=== PATIENT | female | born 1985 | race Caucasian/White ===

== ENCOUNTER 2016-07-29 10:48 | Emergency (ER) | payer OTHER ==
[~2016-07-29] VITALS: Ht 170.2 cm; Wt 91.8 kg
[~2016-07-29 10:48] MED LIST: ALBUAER19 INH; ALBUAER2 INH; BUPR8SUB SL; PRENTAB26 PO; suboxone PO
[2016-07-29 10:52] VITALS: TEMP 37; Ht 170.2 cm; Wt 91.8 kg
[2016-07-29] MEDS ORDERED: SODIUM CHLORIDE 0.9% 1000ML 1,000 ML IV STA (11:06)
[2016-07-29] MEDS ORDERED: BENZONATATE 100MG CAP PO ONE (11:15)
[2016-07-29 11:29] LABS: BASO % 0.2 %; BASO ABS # 0.02 K/uL (0-0.2); COMPLETE YES; EOS % 1.8 %; HEMATOCRIT 39.9 % (37-47); IG% 0.2 %; LYMPH % 12.3 %; LYMPH ABS # 1.07 K/uL (1.2-3.4); MEAN CELL VOLUME 87.7 fL (80-100); MEAN CORPUSCULAR HEMOGLOBIN 31.4 pg (25-34); MEAN CORPUSCULAR HGB CONC 35.8 g/dl (32-36); MEAN PLATELET VOLUME 9.5 fL (7.4-10.4); NEUT % 79.5 %; PLATELET COUNT 239 K/uL (130-400); RED BLOOD COUNT 4.55 M/uL (4.2-5.4); WHITE BLOOD COUNT 8.67 K/uL (4.8-10.8)
[2016-07-29] MEDS ORDERED: EFF/375 PO (11:30)
[2016-07-29] MEDS ORDERED: VNTHFA/IN INH (11:30)
[2016-07-29] MEDS ORDERED: ESOM20CA PO (11:30)
[2016-07-29 11:45] LABS: BUN/CREATININE RATIO 13.2 (10-20); CALCIUM 8.7 mg/dl (8.5-10.1); CREATININE 0.75 mg/dl (0.60-1.20); POTASSIUM 3.5 mmol/L (3.5-5.1)
--- NOTE | 2016-07-29 11:51 | DIAGNOSTIC IMAGING REPORT ---
CHEST 2 VIEWS ROUTINE CLINICAL HISTORY: Fever and cough COMPARISON STUDY: No previous studies for comparison. FINDINGS: The heart is normal in size. There is no failure. There are left lower lobe airspace opacities consistent with a pneumonia. No pleural effusions are visualized.[ IMPRESSION: Left lower lobe airspace opacities consistent with pneumonia. Films subsequent to treatment are recommended in follow-up. Electronically signed by: Forest Morris M.D. 07/29/2016 11:49 AM Dictated Date/Time: 07/29/2016 11:48 AM
[2016-07-29] MEDS ORDERED: AZITHROMYCIN 250 MG TAB PO STA (11:59)
[2016-07-29] MEDS ORDERED: BENZ100C18 PO (12:38)
[2016-07-29] MEDS ORDERED: AZIT250T PO (12:38)
--- NOTE | 2016-07-29 12:39 | EMERGENCY ROOM VISIT NOTE ---
History First contact with patient: 10:58 Chief Complaint: COUGH Stated Complaint: COUGH, FEVER, BREATHING Nursing Triage Summary: cough, fever, chest pain when she coughs and nausea when she coughs hard. History of Present Illness The patient is a 30 year old female who presents to the Emergency Room with complaints of fever and cough which started on Thursday. The patient states every morning when she gets up her temperature has been 102. She states it comes down with ibuprofen. The patient states that she has a dry cough continuously. She denies any ear pain, postnasal drainage. The patient states that her throat is sore but she thinks it is from coughing but she is able to eat and drink without difficulty. She does admit to decreased appetite. She has not been eating or drinking that much. The patient also admits to diffuse body aches. The patient denies any nausea or vomiting. The patient is asthmatic. 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 The patient also admits to tobacco use. The patient states that her son had pneumonia recently and her had bronchitis. Review of Systems 10 system review was performed and was negative unless stated otherwise history of present illness. Past Medical/Surgical History Medical Problems: (1) ANXIETY STATE NOS (2) ASTHMA, UNSPECIFIED (3) OPIOID DEPENDENCE-REMISS (4) TOBACCO USE DISOR COMP PREG/CHILDBIRTH/PUERPERIUM, ANTEPART Social History Smoking Status: Never Smoker Alcohol Use: occasionally Drug Use: none Marital Status: Housing Status: lives with family Occupation Status: employed Current/Historical Medications Scheduled Albuterol Hfa (Ventolin Hfa), 2-4 PUFFS INH Q6H Esomeprazole Magnesium (Nexium), 20 MG PO DAILY Venlafaxine Hcl (Effexor), 37.5 MG PO DAILY Allergies Coded Allergies: Penicillins (Verified Allergy, Intermediate, n/v, 07/29/16) Physical Exam Vital Signs Date Time Temp Pulse Resp B/P Pulse Ox O2 Delivery O2 Flow Rate FiO2 07/29/16 10:52 37.0 109 18 149/90 96 Room Air Physical Exam PHYSICAL EXAM: Vital Signs were reviewed: Temperature 37.0, blood pressure 149/ 90, pulse 109, respiratory rate 18 Reviewed Nurse's notes and agree. Oxygen saturation is 96 % on room air which is normal . GENERAL: 30-year-old female appears in no acute distress. MENTAL STATUS: Alert, oriented, coherent. EARS: Canals clear. TMs good light reflex, no erythema or fluid level noted. NOSE: Nasal mucosa with moderate erythema engorgement. PHARYNX: No erythema, no edema noted. No exudate noted. Airway is adequate. NECK: Supple, non-tender. No lymphadenopathy noted. LUNGS: Clear to auscultation without wheezes rales or rhonchi. CARDIAC: Regular rate and rhythm without murmur. SKIN: No rashes noted. Medical Decision & Procedures ER Provider Diagnostic Interpretation: CHEST 2 VIEWS ROUTINE CLINICAL HISTORY: Fever and cough COMPARISON STUDY: No previous studies for comparison. FINDINGS: The heart is normal in size. There is no failure. There are left lower lobe airspace opacities consistent with a pneumonia. No pleural effusions are visualized.[ IMPRESSION: Left lower lobe airspace opacities consistent with pneumonia. Films subsequent to treatment are recommended in follow-up. Electronically signed by: Forest Morris M.D. 07/29/2016 11:49 AM Dictated Date/Time: 07/29/2016 11:48 AM Laboratory Results 07/29/16 11:13 Red Blood Count 4.55, Mean Corpuscular Volume 87.7, Mean Corpuscular Hemoglobin 31.4, Mean Corpuscular Hemoglobin Concent 35.8, Mean Platelet Volume 9.5, Neutrophils (%) (Auto) 79.5, Lymphocytes (%) (Auto) 12.3, Monocytes (%) (Auto) 6.0, Eosinophils (%) (Auto) 1.8, Basophils (%) (Auto) 0.2, Neutrophils # (Auto) 6.88, Lymphocytes # (Auto) 1.07, Monocytes # (Auto) 0.52, Eosinophils # (Auto) 0.16, Basophils # (Auto) 0.02 07/29/16 11:13 Test 07/29/16 11:06 07/29/16 11:13 Influenza Type A Antigen Neg for Influ A (NEG) Influenza Type B Antigen Neg for Influ B (NEG) White Blood Count 8.67 K/uL (4.8-10.8) Red Blood Count 4.55 M/uL (4.2-5.4) Hemoglobin 14.3 g/dL (12.0-16.0) Hematocrit 39.9 % (37-47) Mean Corpuscular Volume 87.7 fL (80-100) Mean Corpuscular Hemoglobin 31.4 pg (25-34) Mean Corpuscular Hemoglobin Concent 35.8 g/dl (32-36) Platelet Count 239 K/uL (130-400) Mean Platelet Volume 9.5 fL (7.4-10.4) Neutrophils (%) (Auto) 79.5 % Lymphocytes (%) (Auto) 12.3 % Monocytes (%) (Auto) 6.0 % Eosinophils (%) (Auto) 1.8 % Basophils (%) (Auto) 0.2 % Neutrophils # (Auto) 6.88 K/uL (1.4-6.5) Lymphocytes # (Auto) 1.07 K/uL (1.2-3.4) Monocytes # (Auto) 0.52 K/uL (0.11-0.59) Eosinophils # (Auto) 0.16 K/uL (0-0.5) Basophils # (Auto) 0.02 K/uL (0-0.2) RDW Standard Deviation 39.1 fL (36.4-46.3) RDW Coefficient of Variation 12.2 % (11.5-14.5) Immature Granulocyte % (Auto) 0.2 % Immature Granulocyte # (Auto) 0.02 K/uL (0.00-0.02) Anion Gap 11.0 mmol/L (3-11) Est Creatinine Clear Calc Drug Dose 126.4 ml/min Estimated GFR () 123.1 Estimated GFR (Non- 106.2 BUN/Creatinine Ratio 13.2 (10-20) Calcium Level 8.7 mg/dl (8.5-10.1) Medications Administered Medications (Trade) Dose Ordered Sig/[place] Route Start Time Stop Time Status Last Admin Dose Admin Sodium Chloride (Nss 1000ml) 1,000 ml @ 999 mls/hr Q1H1M STAT IV 07/29/16 11:06 07/29/16 12:06 DC 07/29/16 11:18 999 MLS/HR Benzonatate (Tessalon Perles Cap) 100 mg NOW ONCE PO 07/29/16 11:15 07/29/16 11:16 DC 07/29/16 11:16 100 MG ED Course The patient was evaluated. IV access was obtained. The patient was given 1 L normal saline wide-open. The patient was given Tessalon Perles 100 mg by mouth. CBC and differential and renal profile was ordered. Labs are reviewed and were unremarkable. White count was normal. Rapid influenza was negative for influenza A and influenza B.. Chest x-ray was ordered and interpreted by the radiologist and myself as above with left lower lobe pneumonia. The patient was informed of the findings. The patient was given Zithromax 500 mg by mouth while in the emergency room. The patient was discharged home in stable condition. Medical Decision Differential diagnosis include pneumonia, bronchitis, influenza, asthma exacerbation, viral URI Impression Primary Impression: Pneumonia Departure Information Dispostion Home / Self-Care Condition GOOD Prescriptions Benzonatate (TESSALON PERLES) 100 Mg Cap 100 MG PO Q6 for Cough, #20 CAP Prov: Evelyn Anand PA-C 07/29/16 Azithromycin (Zithromax) 250 Mg Tab 500 MG PO DAILY for 4 Days, #8 TAB Prov: Evelyn Annad PA-C 07/29/16 Referrals Apolinar Mukherjee M.D. (PCP) Forms HOME CARE DOCUMENTATION FORM, IMPORTANT VISIT INFORMATION Patient Instructions ED [facility], [facility] Additional Instructions Take Zithromax as prescribed. Push fluids, rest. Tylenol and/or ibuprofen as needed for fever. Tessalon Perles as needed for cough. Also recommend using your albuterol inhaler 2 puffs every 4 hours for 5 days then every 4 hours as needed. Follow-up with your family physician in 2 days for recheck. Problem Qualifiers Primary Impression: Pneumonia Pneumonia type: due to unspecified organism Laterality: left Lung location : lower lobe of lung Qualified Codes: J18.1 - Lobar pneumonia, unspecified organism
[2016-07-29 13:03] VITALS: BP 123/95; PULSE 93; O2SAT 98
== END 2016-07-29 13:03 | disposition home or self-care (01) ==
LOC: C.EDB 10:49 → C.EDC 13:03
DX: J18.9 Pneumonia, unspecified organism (principal); F41.9 Anxiety disorder, unspecified; J45.909 Unspecified asthma, uncomplicated; F11.21 Opioid dependence, in remission

== ENCOUNTER 2018-01-27 22:50 | Inpatient (IN) | payer OTHER ==
[~2018-01-27] VITALS: Ht 170.2 cm; Wt 96.3 kg
[~2018-01-27 22:50] MED LIST changes: -ALBUAER19 INH; -ALBUAER2 INH; -BUPR8SUB SL; +LEVO5TAB7 PO; +MTR600X PO; +RANI150T85 PO; +SERT25TA PO; +VNTHFA/IN INH; -suboxone PO
[2018-01-27] MEDS ORDERED: SODIUM CHLORIDE 0.9% 1000ML 1,000 ML IV STA (23:09)
[2018-01-27] MEDS ORDERED: MoRPHine SULFATE 10 MG/ML CARP/VIAL IV STA (23:09)
[2018-01-27] MEDS ORDERED: ONDANSETRON INJ 2 MG/ML 2 ML VIAL IV STA (23:09)
[2018-01-27] MEDS ORDERED: DEXAMETHASONE **PF** INJ 10 MG/ML VIAL IV STA (23:17)
[2018-01-27] MEDS ORDERED: MoRPHine SULFATE 4 MG/ML 1 ML CARP\\VIAL ONE (23:24)
[2018-01-27] MEDS ORDERED: OPTIRAY 320 IV PRN (23:30)
[2018-01-27 23:32] LABS: BASO % 0.3 %; BASO ABS # 0.03 K/uL (0-0.2); EOS % 1.3 %; EOS ABS # 0.13 K/uL (0-0.5); HEMATOCRIT 38.3 % (37-47); HEMOGLOBIN 13.1 g/dL (12.0-16.0); IG# 0.01 K/uL (0.00-0.02); LYMPH % 14.8 %; LYMPH ABS # 1.48 K/uL (1.2-3.4); MEAN CELL VOLUME 87.8 fL (80-100); MEAN CORPUSCULAR HGB CONC 34.2 g/dl (32-36); MONO % 6.6 %; MONO ABS # 0.66 K/uL (0.11-0.59); NEUT % 76.9 %; NEUT ABS # 7.72 K/uL (1.4-6.5); PLATELET COUNT 254 K/uL (130-400); RED CELL DISTRIBUTION WIDTH SD 41.8 fL (36.4-46.3); WHITE BLOOD COUNT 10.03 K/uL (4.8-10.8)
[2018-01-27 23:51] LABS: PTT PATIENT 29.3 SECONDS (21.0-31.0)
[2018-01-28 00:05] LABS: ALBUMIN 3.4 gm/dl (3.4-5.0); CALCIUM 8.2 mg/dl (8.5-10.1); CREATININE 0.9 mg/dl (0.60-1.20); POTASSIUM 3.4 mmol/L (3.5-5.1); TOTAL PROTEIN 6.8 gm/dl (6.4-8.2)
--- NOTE | 2018-01-28 00:16 | EMERGENCY ROOM VISIT NOTE ---
History First contact with patient: 22:57 Chief Complaint: DENTAL PAIN Stated Complaint: SWELLING JAW/TEETH Nursing Triage Summary: dental surgery to remove wisdom teeth on Thursday. pt with increased facial swelling and pain. feels like she has a large lump in her throat and cannot swallow. fever and chills. pt taking Vicoden (at 1730) and Ibuprofen 800mg ( at 1800) at home, not helping. pt with increased swelling in her face today. pt contacted her dentist and they cannot see her until Thursday. pt is 6weeks post and not . History of Present Illness The patient is a 32 year old female who presents to the Emergency Room with complaints of severe dental pain and facial swelling which began approximately 2 hours prior to arrival. On Thursday of this week, the patient had teeth pulled in [place]. She states she had an infection prior to the surgery but was not placed on any antibiotics. She states she had both wisdom teeth as well as one other tooth pulled on the left side and one wisdom tooth pulled on the right side. The patient states she has been experiencing some mild swelling and pain , but 2 hours ago, the symptoms significantly worsened. She rates her pain 10/ 10 and describes it as sharp in nature. She has been taking Vicodin and I ibuprofen with her last dose being at approximately 5:30 PM. Patient states she is having difficulty swallowing her saliva, but is able to. She states she has been spitting saliva out. The patient reports chills and shivering throughout the day, but denies any objective fever. She does report some mild drainage in her mouth and feels that there is a foul odor of infection coming from her mouth. The patient denies any chest pain, dyspnea, numbness or tingling, sore throat, nausea or vomiting, headache, dizziness, or other concerning symptoms. Review of Systems A complete 10 point review of systems was reviewed with the patient with pertinent positives and negatives as per history of present illness. All else were negative. Past Medical/Surgical History Medical Problems: (1) ANXIETY STATE NOS (2) ASTHMA, UNSPECIFIED (3) OPIOID DEPENDENCE-REMISS (4) (5) TOBACCO USE DISOR COMP PREG/CHILDBIRTH/PUERPERIUM, ANTEPART Family History Atrial fibrillation Social History Smoking Status: Current Every Day Smoker Smokeless Tobacco Use: No Alcohol Use: none Drug Use: none Marital Status: Housing Status: lives with family Occupation Status: employed Current/Historical Medications Scheduled Levocetirizine Dihydrochloride (Xyzal Allergy 24Hr), 5 MG PO QPM Ranitidine (Zantac), 1 TAB PO BID Sertraline (Zoloft), 1 TAB PO DAILY Scheduled PRN Albuterol Hfa (Ventolin Hfa), 2 PUFFS INH Q6H PRN for SOB/Wheezing Ibuprofen (Motrin), 600 MG PO Q4H PRN for Pain Physical Exam Vital Signs Date Time Temp Pulse Resp B/P (MAP) Pulse Ox O2 Delivery O2 Flow Rate FiO2 01/28/18 00:23 96 20 124/70 99 Room Air 01/27/18 22:52 37.3 133 20 134/91 100 Room Air Physical Exam VITALS: Vitals are noted on the nurse's note and reviewed by myself. Vital signs stable. GENERAL: This is a 32-year-old obese white female, in no acute distress, nondiaphoretic, well-developed well-nourished. SKIN: The skin was without rashes, erythema, edema, or bruising. There is no tenting of the skin. Capillary reflex less than 2 seconds. HEAD: Normocephalic atraumatic. EARS: External auditory canals clear, tympanic membranes pearly lewis without erythema or effusion bilaterally. EYES: Pupils equal round and reactive to light and accommodation. Conjunctivae without injection, sclerae without icterus. Extraocular movements intact. NOSE: Patent, turbinates without inflammation or discharge. No sinus tenderness. MOUTH: Mucous membranes moist. Tonsils are not visualized. Visualized portions of the pharynx without erythema or exudate. Uvula midline. Airway patent. Tongue does not deviate. Poor dentition with recently extracted teeth. There is no significant redness, however the mouth is overall swollen and edematous. There is swelling extending to the floor of the mouth. No obvious drainage from the mouth. There is saliva within the oral cavity which the patient is having difficulty swallowing. NECK: Significant swelling and edema of the left side of the neck. Supple without nuchal rigidity. No lymphadenopathy. No thyromegaly. Cervical spine is nontender. No JVD. Airway patent. HEART: Regular rate and rhythm without murmurs gallops or rubs. LUNGS: Clear to auscultation bilaterally without wheezes, rales or rhonchi. No dullness to percussion. No retractions or accessory muscle use. MUSCULOSKELETAL: No muscle atrophy, erythema, or edema noted. Full range of motion without joint tenderness in all extremities. No tenderness to palpation. Normal gait. Strength 5/5 throughout. NEURO: Patient was alert and oriented to person place and time. Normal sensation to light and sharp touch. No focal neurological deficits. Medical Decision & Procedures ER Provider Diagnostic Interpretation: CT OF THE NECK WITH CONTRAST CLINICAL HISTORY: Neck swelling and dyspnea. Recent dental procedure. COMPARISON STUDY: No previous studies for comparison. TECHNIQUE: Axial images of the neck were obtained following intravenous injection of 92 cc of Optiray 320 IV. FINDINGS: Visualized portions of the intracranial contents are unremarkable. Orbits are normal. Note is made of moderate mucosal thickening of the right maxillary sinus and mild mucosal thickening of the remainder of the sinuses. Small amount of bilateral mastoid fluid is noted. Lung apices are clear. There are findings consistent with recent extraction of the left third mandibular molar. There is moderate adjacent fluid and inflammation without rim-enhancing fluid collection. This inflammation extends into the manager [employer], submandibular and parapharyngeal spaces with secondary enlargement of the left submandibular gland as well as thickening/edema of the epiglottis and left aryepiglottic fold with resultant mild to moderate supraglottic airway narrowing with effacement. Infiltration extends into the floor of the mouth. There is no soft tissue gas. There is no prevertebral fluid. Note is made of age indeterminate extraction of bilateral maxillary molars. The left maxillary molar extraction site may communicate with the left maxillary sinus. Major vasculature of the neck is patent. No suspicious osseous lesion is present. IMPRESSION: 1. Findings consistent with recent extraction of the left third mandibular molar with moderate adjacent inflammation/fluid which extends into the left [employer], submandibular and parapharyngeal spaces and floor of the mouth consistent with cellulitis/phlegmon. No rim-enhancing fluid collection to suggest abscess. Associated edema of the left aryepiglottic fold and epiglottis with airway effacement and mild to moderate supraglottic airway narrowing. Close clinical monitoring is recommended. Discussed with Dr. Spears at time of dictation. 2. Age indeterminate extractions of bilateral maxillary molars, as described above. Electronically signed by: Vu Tony M.D. 01/28/2018 8:10 AM Dictated Date/Time: 01/28/2018 6:40 AM Laboratory Results Test 01/27/18 23:22 Prothrombin Time 10.3 SECONDS (9.0-12.0) Prothromb Time International Ratio 1.0 (0.9-1.1) Activated Partial Thromboplast Time 29.3 SECONDS (21.0-31.0) Partial Thromboplastin Ratio 1.1 Lactic Acid Level 0.9 mmol/L (0.4-2.0) Total Bilirubin 0.4 mg/dl (0.2-1) Aspartate Amino Transf (AST/SGOT) 18 U/L (15-37) Alanine Aminotransferase (ALT/SGPT) 31 U/L (12-78) Alkaline Phosphatase 54 U/L (45-117) Total Protein 6.8 gm/dl (6.4-8.2) Albumin 3.4 gm/dl (3.4-5.0) Globulin 3.4 gm/dl (2.5-4.0) Albumin/Globulin Ratio 1.0 (0.9-2) Human Chorionic Gonadotropin, Qual NEG (NEG) Medications Administered Medications (Trade) Dose Ordered Sig/[place] Route Start Time Stop Time Status Last Admin Dose Admin Ondansetron HCl (Zofran Inj) 4 mg NOW STAT IV 01/27/18 23:09 01/27/18 23:14 DC 01/27/18 23:29 4 MG Sodium Chloride 1,000 ml @ 999 mls/hr Q1H1M STAT IV 01/27/18 23:09 01/28/18 00:09 DC 01/27/18 23:33 999 MLS/HR Dexamethasone Sodium Phosphate (Dexamethasone Inj Pf) 10 mg NOW STAT IV 01/27/18 23:17 01/27/18 23:18 DC 01/27/18 23:29 10 MG Morphine Sulfate (MoRPHine SULFATE INJ) 8 mg STK-MED ONCE .ROUTE 01/27/18 23:24 01/27/18 23:25 DC 01/27/18 23:29 8 MG Ampicillin Sodium/ Sulbactam Sodium 3000 mg/Sodium Chloride 108 ml @ 200 mls/hr ONE STAT IV 01/28/18 01:03 01/28/18 01:35 DC 01/28/18 01:11 200 MLS/HR Morphine Sulfate (MoRPHine SULFATE INJ) 3 mg Q3HWA PRN IV 01/28/18 01:30 8 01:29 01/28/18 14:27 3 MG ED Course The patient was seen and evaluated as above. IV access obtained, labs drawn. The patient was given morphine, Zofran, Decadron, and normal saline solution. Labs reviewed by myself. Imaging performed and reviewed by myself and radiologist as above. I discussed the findings with the patient at bedside. I discussed the case with my attending. I consulted with Dr. Nolasco via phone regarding patient condition. We agreed that admission for airway monitoring and IV antibiotics was the most appropriate plan at this time. He agrees to consult tomorrow morning with a medicine admission. I discussed this recommendation with the patient at bedside. She was agreeable to admission. The patient was given 3g IV Unasyn. I discussed the case with Dr. Mi, [facility]. He agrees to accept the patient to his service. Please see his dictation regarding ongoing management and care. Medical Decision This is a 32-year-old female patient presents emergency department today complaining of significant relatively sudden onset of pain and facial swelling 3 days post dental extraction. There is concern for possible cellulitis, abscess, and airway compromise due to the patient's condition and symptoms. She has not been on antibiotics since the extraction. Laboratory workup here in the emergency department did not reveal any leukocytosis, anemia, thrombocytopenia. The patient's renal, hepatic function and electrolytes were without significant abnormalities. The patient's lactic acid was normal. Blood cultures are pending. CT scan of the neck shows evidence for significant inflammatory changes extending from the left mandibular body with edema into the manager company space, submandibular space, and floor of the mouth, consistent with cellulitis/phlegmon. There is no obvious abscess, however the cellulitis on the floor of the mouth was concerning for risk of developing airway compromise. Based on these findings and the patient's complaints of dyspnea and trismus, I do feel that admission for IV antibiotics and airway monitoring is the most appropriate management at this time. The patient was agreeable. She was started on IV antibiotics and given 10 mg Decadron here in the emergency department with mild improvement in her symptoms. Her pain was managed with morphine. The patient will be admitted for ongoing management and monitoring. Differential diagnosis includes Ezra's angina, cellulitis, airway obstruction , postoperative infection, odontalgia, periapical abscess, acute sinusitis, osteomyelitis, gingivitis, pulpitis, dental caries, periodontitis, malignancy, and others The chart was completed utilizing [employer] Speech voice recognition software. Grammatical errors, random word insertions, pronoun errors, and incomplete sentences are an occasional consequence of this system due to software limitations, ambient noise, and hardware issues. Any formal questions or concerns about the content, text, or information contained within the body of this dictation should be directly addressed to the provider for clarification. [place] Drug Monitoring Program Search Results: patient reviewed within database, no issues identified Medication Reconcilliation Current Medication List: was personally reviewed by me Blood Pressure Screening Patient's blood pressure: Normal blood pressure Impression Primary Impression: Cellulitis and abscess of mouth Departure Information Referrals Apolinar Mukherjee M.D. (PCP) Patient Instructions My [facility]
[2018-01-28] MEDS ORDERED: AMPICILLIN/SULBACTAM SOD INJ 3,000 MG in SODIUM CHLORIDE 0.9% 100ML 100 ML IV STA (01:03)
[2018-01-28] MEDS ORDERED: ONDANSETRON INJ 2 MG/ML 2 ML VIAL IV PRN (01:30)
[2018-01-28] MEDS ORDERED: ALUMINUM/MAGNESIUM/SIMETH (MAALOX MAX) 30 ML UDC PO PRN (01:30)
[2018-01-28] MEDS ORDERED: D5W AND NSS 1,000 ML IV SCH (01:30)
[2018-01-28] MEDS ORDERED: ALBUTEROL HFA 8 GM INHALER INH SCH (01:30)
[2018-01-28] MEDS ORDERED: IBUP600T44 PO (01:37)
[2018-01-28] MEDS ORDERED: VNTHFA/IN INH (01:40)
[2018-01-28] MEDS ORDERED: POTASSIUM CHLR IV SCH (01:45)
[2018-01-28] MEDS ORDERED: ALBUTEROL HFA 8 GM INHALER INH PRN (01:45)
[2018-01-28] MEDS ORDERED: WTR IV SCH (01:45)
[2018-01-28] MEDS ORDERED: D5W AND NSS IV SCH (01:45)
[2018-01-28 02:25] VITALS: BP 128/86; PULSE 92; TEMP 37.2; O2SAT 97; Ht 170.2 cm; Wt 96.3 kg
[2018-01-28] MEDS: D5NSS + 20MEQ KCL 1,000 ML IV SCH ×2 (03:32→15:04)
[2018-01-28] MEDS: MoRPHine SULFATE 4 MG/ML 1 ML CARP\\VIAL IV PRN ×5 (03:32→21:11)
[2018-01-28] MEDS: AMPICILLIN/SULBACTAM SOD INJ 3,000 MG in SODIUM CHLORIDE 0.9% 100ML 100 ML IV SCH ×3 (05:50→17:59)
[2018-01-28 06:17] LABS: BASO % 0.1 %; BASO ABS # 0.01 K/uL (0-0.2); EOS % 0.1 %; EOS ABS # 0.01 K/uL (0-0.5); HEMATOCRIT 37.4 % (37-47); HEMOGLOBIN 12.8 g/dL (12.0-16.0); IG# 0.02 K/uL (0.00-0.02); LYMPH % 5.1 %; LYMPH ABS # 0.58 K/uL (1.2-3.4); MEAN CELL VOLUME 88.4 fL (80-100); MEAN CORPUSCULAR HEMOGLOBIN 30.3 pg (25-34); MEAN CORPUSCULAR HGB CONC 34.2 g/dl (32-36); MEAN PLATELET VOLUME 8.9 fL (7.4-10.4); MONO % 1.1 %; MONO ABS # 0.13 K/uL (0.11-0.59); NEUT % 93.4 %; NEUT ABS # 10.64 K/uL (1.4-6.5); PLATELET COUNT 244 K/uL (130-400); RED CELL DISTRIBUTION WIDTH CV 12.9 % (11.5-14.5); RED CELL DISTRIBUTION WIDTH SD 41.6 fL (36.4-46.3); WHITE BLOOD COUNT 11.39 K/uL (4.8-10.8)
[2018-01-28 06:56] LABS: CALCIUM 7.9 mg/dl (8.5-10.1); CREATININE 0.73 mg/dl (0.60-1.20)
--- NOTE | 2018-01-28 07:02 | HISTORY & PHYSICAL EXAMINATION ---
DATE OF ADMISSION: 01/27/2018 CHIEF COMPLAINT: Tooth and facial pain. HISTORY OF PRESENT ILLNESS: This is a 32-year-old female with past medical history significant for asthma mild persistent, who recently on last Thursday had tooth extraction, comes with severe facial pain and pain in the neck. The patient says her 3 of the wisdom tooth were extracted and one of the tooth in her left lower side was extracted because of some possible infection and that she was not given antibiotics. Since the extraction, she was having pain and she was not able to eat much, but today the pain got worse and she was having difficulty swallowing, so she came to the ER. In the ER, her vitals were okay. Her white count was okay, but the CAT scan of the soft tissue was done, which showed possible cellulitis and the ER physician spoke with the oromaxillary surgery and was recommended to start on IV antibiotics and observe in the hospital. Currently, patient complaints of pain in her jaws and the throat, has some difficulty swallowing. She is trying to drink liquids, but not able to eat solids much. Denies any fever or chills. No shortness of breath, no cough, no headaches, no blurred vision, no earache, no runny nose, no chest pain, no nausea, no vomiting, no abdominal pain. Did not move bowels since last Thursday as she is not eating much. Normal bladder movements. No swelling in the legs. ALLERGIES: No known drug allergies. PAST MEDICAL HISTORY: As mentioned above. PAST SURGICAL HISTORY: Colonoscopy. MEDICATIONS: The patient is on Ventolin 2 puffs every 4 hours p.r.n., Zoloft 25 mg p.o. daily, levocetirizine 5 mg p.o. in the evening, Zantac 150 mg p.o. daily. FAMILY HISTORY: Significant for mother had asthma and hypertension. Brother had cancer. Grandmother has diabetes. SOCIAL HISTORY: , smokes half-pack a day for last 12 years. No alcohol use. No drug use. REVIEW OF SYMPTOMS: As per HPI. Rest of review of systems negative. PHYSICAL EXAMINATION: GENERAL: The patient is of moderate build, not in distress. VITAL SIGNS: Temperature 37.3, pulse 96, respiratory rate 20, blood pressure 124/70, oxygen 99% on room air. HEENT: No pallor, no icterus. Pupils equal, round, reactive to light. The patient is not able to open mouth fully, but seems to have some swelling in the left molar region. NECK: No JVD, some swelling in the neck, swelling of the bilateral mandibular region. CARDIOVASCULAR: S1, S2 heard. Regular rate and rhythm. No murmur, no gallop. RESPIRATORY SYSTEM: Clear to auscultation bilaterally. No wheezing, no crackles. ABDOMEN: Soft, bowel sounds present. Nontender. No distention. CENTRAL NERVOUS SYSTEM: Cranial nerves II through XII grossly nonfocal. Nonfocal. EXTREMITIES: No edema, no erythema. LABS: WBC 10.03, hemoglobin 13.1, hematocrit 38.3, platelets 254. Sodium 139, potassium 3.4, chloride 109, bicarbonate 24, BUN 10, creatinine 0.9, serum glucose 89, lactic acid 0.9, calcium 8.2, total bilirubin 0.4, AST 18, ALT 31, alkaline phosphatase 54. HCG negative. PT 10.3, INR 1, APTT 29.3. Soft tissue neck CT scan, official reading pending. ASSESSMENT AND PLAN: This is a 32-year-old female who presents with cellulitis and infection of the mouth. 1. Cellulitis and infection of the mouth who recently had 3 wisdom tooth extracted and one of tooth extracted on the left side , premolar? The patient has difficulty swallowing, clear liquid diet, IV fluids, IV Unasyn. We will consult oromaxillary surgery and await for further recommendations. 2. Asthma. Continue albuterol p.r.n. 3. GERD on Zantac. 4. Depression, Zoloft. 5. DVT prophylaxis, SCDs and TEDs for now. 6. Disposition: Admit to medical floor. Expect to discharge home and follow with her family doctor. Level 1 full code. MTDD
[2018-01-28 07:42] VITALS: BP 114/76; PULSE 70; TEMP 37; O2SAT 98
[2018-01-28] MEDS: PRENATAL VITAMIN TAB PO SCH (09:00)
[2018-01-28] MEDS: RANITIDINE HCL 150 MG TAB PO SCH ×2 (09:01→21:13)
[2018-01-28] MEDS: SERTRALINE HCL 50 MG TAB PO SCH (09:01)
--- NOTE | 2018-01-28 09:04 | DIAGNOSTIC IMAGING REPORT ---
CT OF THE NECK WITH CONTRAST CLINICAL HISTORY: Neck swelling and dyspnea. Recent dental procedure. COMPARISON STUDY: No previous studies for comparison. TECHNIQUE: Axial images of the neck were obtained following intravenous injection of 92 cc of Optiray 320 IV. FINDINGS: Visualized portions of the intracranial contents are unremarkable. Orbits are normal. Note is made of moderate mucosal thickening of the right maxillary sinus and mild mucosal thickening of the remainder of the sinuses. Small amount of bilateral mastoid fluid is noted. Lung apices are clear. There are findings consistent with recent extraction of the left third mandibular molar. There is moderate adjacent fluid and inflammation without rim-enhancing fluid collection. This inflammation extends into the alignment mechanic, submandibular and parapharyngeal spaces with secondary enlargement of the left submandibular gland as well as thickening/edema of the epiglottis and left aryepiglottic fold with resultant mild to moderate supraglottic airway narrowing with effacement. Infiltration extends into the floor of the mouth. There is no soft tissue gas. There is no prevertebral fluid. Note is made of age indeterminate extraction of bilateral maxillary molars. The left maxillary molar extraction site may communicate with the left maxillary sinus. Major vasculature of the neck is patent. No suspicious osseous lesion is present. IMPRESSION: 1. Findings consistent with recent extraction of the left third mandibular molar with moderate adjacent inflammation/fluid which extends into the left alignment mechanic, submandibular and parapharyngeal spaces and floor of the mouth consistent with cellulitis/phlegmon. No rim-enhancing fluid collection to suggest abscess. Associated edema of the left aryepiglottic fold and epiglottis with airway effacement and mild to moderate supraglottic airway narrowing. Close clinical monitoring is recommended. Discussed with Dr. Spears at time of dictation. 2. Age indeterminate extractions of bilateral maxillary molars, as described above. Electronically signed by: Vu Tony M.D. 01/28/2018 8:10 AM Dictated Date/Time: 01/28/2018 6:40 AM
[2018-01-28 15:20] VITALS: BP 121/69; PULSE 73; TEMP 37.1; O2SAT 97
--- NOTE | 2018-01-28 15:50 | Progress Note ---
Internal Med Progress Note Date of Service: Jan 28, 2018. Provider Documentation: SUBJECTIVE: The patient was seen and examined in medical floor She underwent removal of left lower premolars on Thursday She was admitted to the hospital last night with increasing pain, swelling and difficulty in swallowing for the last day or 2 She was admitted to medical floor on IV antibiotic OBJECTIVE: Vital Signs-as noted below Exam: General-very anxious but no apparent distress Eyes-normal ENT-normal Neck-swelling of the left lower face and upper neck area Tender adenopathy on the left side Lungs-clear to auscultate bilaterally Heart-regular, no murmur appreciated Abdomen-benign, soft nontender, Extremities-no edema Neuro-no focal neuro deficit Lab data as noted below. ASSESSMENT & PLAN: This is a 32-year-old female who presents with cellulitis and infection of the mouth. Cellulitis and infection of the mouth Has had 3 wisdom tooth extracted and one of tooth extracted last Thursday CT soft tissue of the neck did show swelling with some deviation of the trachea without compromising the airways and no abscess identified Has been on IV fluid and IV Unasyn Unasyn. Consult oromaxillary surgery -appreciate input Asthma. Continue albuterol p.r.n. No acute issue GERD on Zantac. Depression, Zoloft. DVT prophylaxis, SCDs and TEDs for now. Disposition: Like to be discharged tomorrow on oral Augmentin Vital Signs: Date Time Temp Pulse Resp B/P (MAP) Pulse Ox O2 Delivery O2 Flow Rate FiO2 01/28/18 15:20 37.1 73 18 121/69 (86) 97 01/28/18 07:42 37.0 70 16 114/76 (89) 98 Room Air 01/28/18 07:40 Room Air 01/28/18 02:25 Room Air 01/28/18 02:25 37.2 92 16 128/86 97 Room Air 01/28/18 02:12 37.2 78 20 126/80 98 Room Air 01/28/18 00:23 96 20 124/70 99 Room Air 01/27/18 22:52 37.3 133 20 134/91 100 Room Air Lab Results: Results Past 24 Hours Test 01/27/18 23:22 01/28/18 05:47 Range/Units White Blood Count 10.03 11.39 4.8-10.8 K/uL Red Blood Count 4.36 4.23 4.2-5.4 M/uL Hemoglobin 13.1 12.8 12.0-16.0 g/dL Hematocrit 38.3 37.4 37-47 % Mean Corpuscular Volume 87.8 88.4 80-100 fL Mean Corpuscular Hemoglobin 30.0 30.3 25-34 pg Mean Corpuscular Hemoglobin Concent 34.2 34.2 32-36 g/dl Platelet Count 254 244 130-400 K/uL Mean Platelet Volume 9.0 8.9 7.4-10.4 fL Neutrophils (%) (Auto) 76.9 93.4 % Lymphocytes (%) (Auto) 14.8 5.1 % Monocytes (%) (Auto) 6.6 1.1 % Eosinophils (%) (Auto) 1.3 0.1 % Basophils (%) (Auto) 0.3 0.1 % Neutrophils # (Auto) 7.72 10.64 1.4-6.5 K/uL Lymphocytes # (Auto) 1.48 0.58 1.2-3.4 K/uL Monocytes # (Auto) 0.66 0.13 0.11-0.59 K/uL Eosinophils # (Auto) 0.13 0.01 0-0.5 K/uL Basophils # (Auto) 0.03 0.01 0-0.2 K/uL RDW Standard Deviation 41.8 41.6 36.4-46.3 fL RDW Coefficient of Variation 13.0 12.9 11.5-14.5 % Immature Granulocyte % (Auto) 0.1 0.2 % Immature Granulocyte # (Auto) 0.01 0.02 0.00-0.02 K/uL Prothrombin Time 10.3 9.0-12.0 SECONDS Prothromb Time International Ratio 1.0 0.9-1.1 Activated Partial Thromboplast Time 29.3 21.0-31.0 SECONDS Partial Thromboplastin Ratio 1.1 Sodium Level 139 140 136-145 mmol/L Potassium Level 3.4 4.0 3.5-5.1 mmol/L Chloride Level 109 111 98-107 mmol/L Carbon Dioxide Level 24 22 21-32 mmol/L Anion Gap 6.0 7.0 3-11 mmol/L Blood Urea Nitrogen 10 7 7-18 mg/dl Creatinine 0.90 0.73 0.60-1.20 mg/dl Est Creatinine Clear Calc Drug Dose 105.3 56.8 ml/min Estimated GFR () 97.4 125.4 Estimated GFR (Non- 84.0 108.2 BUN/Creatinine Ratio 10.7 9.9 10-20 Random Glucose 89 163 70-99 mg/dl Lactic Acid Level 0.9 0.4-2.0 mmol/L Calcium Level 8.2 7.9 8.5-10.1 mg/dl Total Bilirubin 0.4 0.2-1 mg/dl Aspartate Amino Transf (AST/SGOT) 18 15-37 U/L Alanine Aminotransferase (ALT/SGPT) 31 12-78 U/L Alkaline Phosphatase 54 45-117 U/L Total Protein 6.8 6.4-8.2 gm/dl Albumin 3.4 3.4-5.0 gm/dl Globulin 3.4 2.5-4.0 gm/dl Albumin/Globulin Ratio 1.0 0.9-2 Human Chorionic Gonadotropin, Qual NEG NEG Magnesium Level 2.1 1.8-2.4 mg/dl Microbiology Results 01/27/18 Blood Culture, Received Pending 01/27/18 Blood Culture, Received Pending
[2018-01-28] MEDS: ACETAMINOPHEN 325 MG TAB PO PRN (17:09)
[2018-01-28] MEDS: BOOST BREEZE NUTRITION DRINK 1 BOX PO SCH (21:13)
[2018-01-28 23:32] VITALS: BP 129/87; PULSE 68; TEMP 36.6; O2SAT 97
[2018-01-29] MEDS ORDERED: PATIENT'S HEIGHT AND/OR WEIGHT NEEDED SCH (00:15)
[2018-01-29] MEDS: HYDROmorphone INJ 0.5 MG/0.5 ML SYR IV PRN ×4 (00:16→21:29)
[2018-01-29] MEDS: D5NSS + 20MEQ KCL 1,000 ML IV SCH ×3 (00:16→21:27)
[2018-01-29] MEDS: AMPICILLIN/SULBACTAM SOD INJ 3,000 MG in SODIUM CHLORIDE 0.9% 100ML 100 ML IV SCH ×4 (00:23→17:29)
[2018-01-29] MEDS: ACETAMINOPHEN 325 MG TAB PO PRN ×3 (07:53→16:43)
[2018-01-29 07:57] VITALS: BP 129/86; PULSE 75; TEMP 36.4; O2SAT 100
[2018-01-29] MEDS: BOOST BREEZE NUTRITION DRINK 1 BOX PO SCH ×2 (09:00→21:00)
[2018-01-29] MEDS: PRENATAL VITAMIN TAB PO SCH (09:03)
[2018-01-29] MEDS: SERTRALINE HCL 50 MG TAB PO SCH (09:03)
[2018-01-29] MEDS: RANITIDINE HCL 150 MG TAB PO SCH ×2 (09:03→21:27)
[2018-01-29 16:00] VITALS: BP 124/79; PULSE 80; TEMP 37.4; O2SAT 99
[2018-01-29] MEDS ORDERED: METHYLPREDNISOLONE IV 60 MG in SYRINGE 0 ML IV ONE (17:00)
[2018-01-29] MEDS: KETOROLAC TROMETHAMINE 30 MG/ML VIAL IV PRN (17:29)
--- NOTE | 2018-01-29 17:51 | Progress Note ---
Internal Med Progress Note Date of Service: Jan 29, 2018. Provider Documentation: SUBJECTIVE: The patient was seen and examined in medical floor She underwent removal of left lower premolars on Thursday She was admitted to the hospital last night with increasing pain, swelling and difficulty in swallowing for the last day or 2 She was admitted to medical floor on IV antibiotic 01/29: She has more swelling of the throat today on the left side More tenderness locally with associated redness She cannot swallow any solid food yet OBJECTIVE: Vital Signs-as noted below Exam: General-very anxious but no apparent distress Eyes-normal ENT-normal Neck-swelling of the left lower face and upper neck area-increased today with redness and tenderness locally Tender adenopathy on the left side Lungs-clear to auscultate bilaterally Heart-regular, no murmur appreciated Abdomen-benign, soft nontender, Extremities-no edema Neuro-no focal neuro deficit Lab data as noted below. ASSESSMENT & PLAN: This is a 32-year-old female who presents with cellulitis and infection of the mouth. Cellulitis and infection of the mouth Has had 3 wisdom tooth extracted and one of tooth extracted last Thursday CT soft tissue of the neck did show swelling with some deviation of the trachea without compromising the airways and no abscess identified Has been on IV fluid and IV Unasyn Unasyn. Consult oromaxillary surgery -appreciate input More swelling and redness involving local area Not being able to tolerate any food yet No fever or chills We will add small dose of steroid and also change Dilaudid to Toradol to control pain and inflammation Continue current antibiotic Likely to go home tomorrow Asthma. Continue albuterol p.r.n. No acute issue GERD on Zantac. Depression, Zoloft. DVT prophylaxis, SCDs and TEDs for now. Disposition: Like to be discharged tomorrow on oral Augmentin Vital Signs: Date Time Temp Pulse Resp B/P (MAP) Pulse Ox O2 Delivery O2 Flow Rate FiO2 01/29/18 16:00 37.4 80 18 124/79 (94) 99 Room Air 01/29/18 07:57 36.4 75 18 129/86 (100) 100 Room Air 01/29/18 07:30 Room Air 01/29/18 00:15 Room Air 01/28/18 23:32 36.6 68 16 129/87 (101) 97 Room Air
[2018-01-29 23:10] VITALS: BP 134/87; PULSE 71; TEMP 37.3; O2SAT 98
[2018-01-30] MEDS: KETOROLAC TROMETHAMINE 30 MG/ML VIAL IV PRN ×2 (00:40→07:16)
[2018-01-30] MEDS: AMPICILLIN/SULBACTAM SOD INJ 3,000 MG in SODIUM CHLORIDE 0.9% 100ML 100 ML IV SCH ×3 (00:40→12:00)
[2018-01-30 07:03] VITALS: BP 145/94; PULSE 65; TEMP 36.8; O2SAT 98
[2018-01-30] MEDS: D5NSS + 20MEQ KCL 1,000 ML IV SCH (07:21)
[2018-01-30] MEDS: BOOST BREEZE NUTRITION DRINK 1 BOX PO SCH (09:00)
[2018-01-30] MEDS: PRENATAL VITAMIN TAB PO SCH (09:14)
[2018-01-30] MEDS: RANITIDINE HCL 150 MG TAB PO SCH (09:14)
[2018-01-30] MEDS: SERTRALINE HCL 50 MG TAB PO SCH (09:14)
--- NOTE | 2018-01-30 09:54 | PROGRESS NOTE ---
DATE: 01/30/2018 I saw her actually this morning in room 359 of [facility]. Today, she has made remarkable improvement. She is up, sitting in bed. She is awake. She is alert. She is able to open her mouth. She is able to take fluids readily and is having minimal discomfort. I feel and she agrees that her swelling has gone down tremendously since yesterday. She attributes this to being on the Toradol which has helped her a great deal. I feel at this time that she should be discharged from [facility] and be followed by her oral surgeon in [place], [place]. I would suggest that she be placed on an oral antibiotic, perhaps Augmentin 875 taking this every 12 hours. As far as pain management goes, I suggested that it may be possible to continue her on an oral Toradol or perhaps even ibuprofen 600-800 mg every 8 hours. Basically, she has made great progress over the last 24 hours and she should be discharged if appropriate from the hospitalist service. She has my phone number in case there are any questions that she has over the weekend, but my main recommendation to her is to get followup care by her oral surgeon who did the surgery. Overall, I feel that she is healing well. I see no problems now. The swelling that she has is consistent with the wisdom teeth surgery in a 32-year-old. Oral hygiene care was stressed as well as followup. JOANNE
--- NOTE | 2018-01-30 10:11 | CONSULTATION REPORT ---
DATE OF CONSULTATION: 01/28/2018 I was asked to see Ale Dupont in room 359 at the [facility] for swelling and discomfort of the right side of her neck. The patient was admitted to the Emergency Room on Thursday, the January. I was called by the Emergency Room physician requesting my phone consultation. It appeared that the patient had her wisdom teeth removed on Thursday, that would be the 25 of January, by an oral surgeon in [place], [place]. From what I could gather, the patient had 2 teeth taken out on the lower left side and an upper wisdom tooth taken out on the upper right side. Right after the surgery, she had a lot of pain, but her swelling and discomfort reached a point of intolerance on Thursday which led her to the Emergency Room. In the Emergency Room, the Emergency Room physician noted that the patient had difficulty in opening her mouth, was complaining of swallowing, and informed them that she was not able to eat and as a matter of fact she has not had anything to eat or drink since the surgery. Because she felt that she was dehydrated and in so much pain, he called me and we discussed the case and he felt that it was in her best interests to admit her to the hospital. They also obtained a CT scan and the CT scan revealed the fact that there was an area of cellulitis in the right neck area, but there was no active pus formation. I was asked to see the patient the next day. On , 01/28/2018, I evaluated Ale in her room 359 at [facility]. She was extremely anxious and nervous and was quite concerned that her infection was going to cause her to swell up her airway and choke. I reassured her that this will not happen. I also reassured her that the swelling that she has at basically 3 days after surgery is extremely normal. I did feel some slight swelling to the left mandibular area but basically this I would consider to be normal for the surgery that she had. I reassured her that the cellulitis that was read on the CT scan could very well be surgical edema as a result of the surgery only being 2 to 2-1/2 days ago. The patient's oral hygiene is good. The surgical sites appear to be healing very very well. The pain that she is having does not give a history of a dry socket given the fact that the pain has not intensified and has basically been the same since after the surgery. The swelling that she has again I reassured her is consistent with a postoperative event within 48-72 hours. I advised her that it is important for her to try to drink as much as she can and that we will monitor her in the hospital and hopefully make arrangements for discharge and followup with her oral surgeon back in [place]. On Thursday while I was making rounds at the [facility], I noted that Ale was still in the hospital. I went to visit her again in room 359. The patient was again very anxious and very nervous and was telling me that she felt that she had more pain as well as swelling. She told me that over the last evening that her swelling intensified and her swelling started to go up to her eye area, but surprisingly this morning it has become more normalized. I looked at her once again and could not appreciate any increase in swelling. It was very difficult to get into her mouth, but I was able to get one of my fingers in and with bimanual palpation, I was not able to feel anything other than the normal submandibular glands. She did have the typical swelling that I would see at 4 days after a wisdom teeth removal. Her oral cavity was good. There was no evidence of any infection or pus formation and in my opinion, I did not see an increase in the swelling that she was describing to me. She still is having difficulty in trying to take fluids as well as solid foods. As a matter of fact, the only thing she really has been eating was ice chips. I basically reassured her that she is doing well, she will get better, and that our plan would be to use heat and massage, try to stretch her jaws, try to get something to eat, and it would be a good idea if we can get her out of bed and walk the halls to help motivate her for recovery. I told her I will be making rounds on Thursday again and if she is there, I will evaluate her. Otherwise, she needs to follow up with her oral surgeon. I did leave her my phone number and my name in case she needs to get in touch with me if she is not able to get in touch with her oral surgeon who performed the surgery. So overall I feel that Ale is doing extremely well. She has in my opinion a normal postoperative course with some slight swelling of the left submandibular area which I think is consistent with a 3-day postop of wisdom tooth. I informed the hospitalist service that when she is discharged, she should be discharged on an oral antibiotic and any pain control that they feel is appropriate, but the main thing is that she definitely needs followup with the doctor who did her surgery. Thank you very much for allowing me to participate in the care of your patient. If you need me for any further assistance concerning Ale, please do not hesitate to call. JOANNE
[2018-01-30] MEDS ORDERED: AMOXICILLIN/CLAVULANATE TAB 875 MG TAB PO ONE (12:14)
--- NOTE | 2018-01-30 13:38 | Progress Note ---
Internal Med Progress Note Date of Service: Jan 30, 2018. Provider Documentation: SUBJECTIVE: The patient was seen and examined in medical floor She underwent removal of left lower premolars on Thursday She was admitted to the hospital last night with increasing pain, swelling and difficulty in swallowing for the last day or 2 She was admitted to medical floor on IV antibiotic 01/29: She has more swelling of the throat today on the left side More tenderness locally with associated redness She cannot swallow any solid food yet 01/30: She has been feeling a lot better today Left lower fascial/neck swelling which much better Has been tolerating regular diet OBJECTIVE: Vital Signs-as noted below Exam: General-very anxious but no apparent distress Eyes-normal ENT-normal Neck-swelling of the left lower face and upper neck area-increased today with redness and tenderness locally-much improved Tender adenopathy on the left side-almost resolved Lungs-clear to auscultate bilaterally Heart-regular, no murmur appreciated Abdomen-benign, soft nontender, Extremities-no edema Neuro-no focal neuro deficit Lab data as noted below. ASSESSMENT & PLAN: This is a 32-year-old female who presents with cellulitis and infection of the mouth. Cellulitis and infection of the mouth Has had 3 wisdom tooth extracted and one of tooth extracted last Thursday CT soft tissue of the neck did show swelling with some deviation of the trachea without compromising the airways and no abscess identified Has been on IV fluid and IV Unasyn Unasyn. Consult oromaxillary surgery -appreciate input More swelling and redness involving local area Not being able to tolerate any food yet No fever or chills We will add small dose of steroid and also change Dilaudid to Toradol to control pain and inflammation Continue current antibiotic Likely to go home tomorrow Clinically a lot better today Started on oral Augmentin and tolerated regular diet and antibiotic We will discharge home today Has follow-up appointments Asthma. Continue albuterol p.r.n. No acute issue GERD on Zantac. Depression, Zoloft. DVT prophylaxis, SCDs and TEDs for now. Disposition: Like to be discharged tomorrow on oral Augmentin Vital Signs: Date Time Temp Pulse Resp B/P (MAP) Pulse Ox O2 Delivery O2 Flow Rate FiO2 01/30/18 07:03 36.8 65 16 145/94 (111) 98 Room Air 01/30/18 00:00 Room Air 01/29/18 23:10 37.3 71 16 134/87 (103) 98 Room Air 01/29/18 20:00 Room Air 01/29/18 16:00 37.4 80 18 124/79 (94) 99 Room Air
[2018-01-30] MEDS ORDERED: AMOX1TAB43 PO (13:40)
[2018-01-30] MEDS ORDERED: LCTX PO (13:40)
--- NOTE | 2018-01-30 13:44 | Discharge Instructions ---
Discharge Instructions Date of Service Jan 30, 2018. Admission Reason for Admission: Cellulitis And Abscess Of Mouth Discharge Discharge Diagnosis / Problem: Infection followinr Dental extraction-no Abscess formation Discharge Goals Goal(s): Prevent Disease Progression Activity Recommendations Activity Limitations: resume your previous activity . Instructions / Follow-Up Instructions / Follow-Up Dr Mukherjee on 02/02/18 at 12:45 PM.Please keep appointment with Oral surgeon Current Hospital Diet Patient's current hospital diet: Regular Diet Discharge Diet Recommended Diet: Regular Diet Pending Studies Studies pending at discharge: no Medical Emergencies . Who to Call and When: Medical Emergencies: If at any time you feel your situation is an emergency, please call 911 immediately. . Non-Emergent Contact Non-Emergency issues call your: Primary Care Provider . Past History Medical & Surgical History: (1) Cellulitis and abscess of mouth (2) ASTHMA, UNSPECIFIED (3) ANXIETY STATE NOS . "Provider Documentation" section prepared by Diana Spears. .
[2018-01-30 14:25] VITALS: BP 145/94; PULSE 65; TEMP 36.8; O2SAT 98
[2018-01-30] MEDS: ACETAMINOPHEN 325 MG TAB PO PRN (14:31)
[2018-01-30] MEDS ORDERED: AMOXICILLIN/CLAVULANATE TAB 875 MG TAB PO SCH (17:45)
--- NOTE | 2018-01-31 08:24 | Discharge Summary ---
Discharge Summary Date of Service Jan 31, 2018. Discharge Summary Admission Date: Jan 28, 2018 at 01:35 Discharge Date: Jan 30, 2018 Principal Diagnosis: Infection following Dental extraction-no Abscess formation Secondary Diagnoses/Problems: Please see H&P and Hospital progress note Consultations: Oropharyngeal Surgery Medication Reconciliation New Medications: Lactobacillus Acidophilus (Lactinex) Tab 2 TAB PO BID, #30 TAB Amoxicillin & Pot Clavulanate (Amoxicillin/Clavulanate P) 1 Tab Tab 875 MG PO BIDM for 5 Days, #10 TAB Continued Medications: Albuterol Hfa (Ventolin Hfa) 200 Puffs/83282 Mcg Aers 2 PUFFS INH Q6H PRN for SOB/Wheezing, #1 INHALER Ibuprofen (Motrin) 600 Mg Tab 600 MG PO Q4H PRN for Pain, TAB Levocetirizine Dihydrochloride (Xyzal Allergy 24Hr) 5 Mg Tab 5 MG PO QPM Ranitidine (Zantac) 150 Mg Tab 1 TAB PO BID for 30 Days, #60 TAB 3 Refills Sertraline (Zoloft) 25 Mg Tab 1 TAB PO DAILY Admission Information HPI (per Admitting provider): DATE OF ADMISSION: 01/27/2018 CHIEF COMPLAINT: Tooth and facial pain. HISTORY OF PRESENT ILLNESS: This is a 32-year-old female with past medical history significant for asthma mild persistent, who recently on last Thursday had tooth extraction, comes with severe facial pain and pain in the neck. The patient says her 3 of the wisdom tooth were extracted and one of the tooth in her left lower side was extracted because of some possible infection and that she was not given antibiotics. Since the extraction, she was having pain and she was not able to eat much, but today the pain got worse and she was having difficulty swallowing, so she came to the ER. In the ER, her vitals were okay. Her white count was okay, but the CAT scan of the soft tissue was done, which showed possible cellulitis and the ER physician spoke with the oromaxillary surgery and was recommended to start on IV antibiotics and observe in the hospital. Currently, patient complaints of pain in her jaws and the throat, has some difficulty swallowing. She is trying to drink liquids, but not able to eat solids much. Denies any fever or chills. No shortness of breath, no cough, no headaches, no blurred vision, no earache, no runny nose, no chest pain, no nausea, no vomiting, no abdominal pain. Did not move bowels since last Thursday as she is not eating much. Normal bladder movements. No swelling in the legs. ALLERGIES: No known drug allergies. PAST MEDICAL HISTORY: As mentioned above. PAST SURGICAL HISTORY: Colonoscopy. MEDICATIONS: The patient is on Ventolin 2 puffs every 4 hours p.r.n., Zoloft 25 mg p.o. daily, levocetirizine 5 mg p.o. in the evening, Zantac 150 mg p.o. daily. FAMILY HISTORY: Significant for mother had asthma and hypertension. Brother had cancer. Grandmother has diabetes. SOCIAL HISTORY: , smokes half-pack a day for last 12 years. No alcohol use. No drug use. REVIEW OF SYMPTOMS: As per HPI. Rest of review of systems negative. PHYSICAL EXAMINATION: GENERAL: The patient is of moderate build, not in distress. VITAL SIGNS: Temperature 37.3, pulse 96, respiratory rate 20, blood pressure 124/70, oxygen 99% on room air. HEENT: No pallor, no icterus. Pupils equal, round, reactive to light. The patient is not able to open mouth fully, but seems to have some swelling in the left molar region. NECK: No JVD, some swelling in the neck, swelling of the bilateral mandibular region. CARDIOVASCULAR: S1, S2 heard. Regular rate and rhythm. No murmur, no gallop. RESPIRATORY SYSTEM: Clear to auscultation bilaterally. No wheezing, no crackles. ABDOMEN: Soft, bowel sounds present. Nontender. No distention. CENTRAL NERVOUS SYSTEM: Cranial nerves II through XII grossly nonfocal. Nonfocal. EXTREMITIES: No edema, no erythema. LABS: WBC 10.03, hemoglobin 13.1, hematocrit 38.3, platelets 254. Sodium 139, potassium 3.4, chloride 109, bicarbonate 24, BUN 10, creatinine 0.9, serum glucose 89, lactic acid 0.9, calcium 8.2, total bilirubin 0.4, AST 18, ALT 31, alkaline phosphatase 54. HCG negative. PT 10.3, INR 1, APTT 29.3. Soft tissue neck CT scan, official reading pending. ASSESSMENT AND PLAN: This is a 32-year-old female who presents with cellulitis and infection of the mouth. 1. Cellulitis and infection of the mouth who recently had 3 wisdom tooth extracted and one of tooth extracted on the left side , premolar? The patient has difficulty swallowing, clear liquid diet, IV fluids, IV Unasyn. We will consult oromaxillary surgery and await for further recommendations. 2. Asthma. Continue albuterol p.r.n. 3. GERD on Zantac. 4. Depression, Zoloft. 5. DVT prophylaxis, SCDs and TEDs for now. 6. Disposition: Admit to medical floor. Expect to discharge home and follow with her family doctor. Level 1 full code. Dictated: 01/28/18 0143 Transcribed: 01/28/18 0314 <Electronically signed by Zachary Mi MD> Signed: 01/28/18 0725 ES Zachary Mi MD Hospital Course This is a 32-year-old female who presents with cellulitis and infection of the mouth. Cellulitis and infection of the mouth Has had 3 wisdom tooth extracted and one of tooth extracted last Thursday CT soft tissue of the neck did show swelling with some deviation of the trachea without compromising the airways and no abscess identified Has been on IV fluid and IV Unasyn Unasyn. Consult oromaxillary surgery -appreciate input More swelling and redness involving local area Not being able to tolerate any food yet No fever or chills We will add small dose of steroid and also change Dilaudid to Toradol to control pain and inflammation Continue current antibiotic Likely to go home tomorrow Clinically a lot better today Started on oral Augmentin and tolerated regular diet and antibiotic We will discharge home today Has follow-up appointments Asthma. Continue albuterol p.r.n. No acute issue GERD on Zantac. Depression, Zoloft. DVT prophylaxis, SCDs and TEDs for now. Disposition: Like to be discharged tomorrow on oral Augmentin Total time spent on discharge = 35 minutes This includes examination of the patient, discharge planning, medication reconciliation, and communication with other providers. Discharge Instructions Date of Service Jan 30, 2018. Admission Reason for Admission: Cellulitis And Abscess Of Mouth Discharge Discharge Diagnosis / Problem: Infection followinr Dental extraction-no Abscess formation Discharge Goals Goal(s): Prevent Disease Progression Activity Recommendations Activity Limitations: resume your previous activity . Instructions / Follow-Up Instructions / Follow-Up Dr Mukherjee on 02/02/18 at 12:45 PM.Please keep appointment with Oral surgeon Current Hospital Diet Patient's current hospital diet: Regular Diet Discharge Diet Recommended Diet: Regular Diet Pending Studies Studies pending at discharge: no Medical Emergencies . Who to Call and When: Medical Emergencies: If at any time you feel your situation is an emergency, please call 911 immediately. . Non-Emergent Contact Non-Emergency issues call your: Primary Care Provider . Past History Medical & Surgical History: (1) Cellulitis and abscess of mouth (2) ASTHMA, UNSPECIFIED (3) ANXIETY STATE NOS . "Provider Documentation" section prepared by Diana Spears. . <Electronically signed by Diana Spears M.D.> Signed: 01/30/18 9139 Additional Copies To Apolinar Mukherjee M.D.
== END 2018-01-30 14:45 | disposition home or self-care (01) | DRG 159 ==
LOC: C.EDB 22:51 → C.MSW 01-28 01:35 → ENRESERV 01-28 01:44
PROVIDERS: ADMIT Hospitalist; ATTEND Internal Medicine
DX: K12.2 Cellulitis and abscess of mouth (principal); J45.30 Mild persistent asthma, uncomplicated; K21.9 Gastro-esophageal reflux disease without esophagitis; F32.9 Major depressive disorder, single episode, unspecified; F17.200 Nicotine dependence, unspecified, uncomplicated; Z79.899 Other long term (current) drug therapy; Z98.890 Other specified postprocedural states; Z82.49 Family history of ischemic heart disease and other diseases of the circulatory system; Z83.3 Family history of diabetes mellitus; Z82.5 Family history of asthma and other chronic lower respiratory diseases

== ENCOUNTER 2021-08-30 05:24 | Observation (INO) ==
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
[~2021-08-30 05:24] MED LIST changes: +LACTATED RINGER'S 1,000 ML IV SCH; -LEVO5TAB7 PO; +LR 15ML/HR IV SCH; -MTR600X PO; -PRENTAB26 PO; -RANI150T85 PO; -SERT25TA PO; -VNTHFA/IN INH; +ceFAZolin 2000MG 2,000 MG/15 ML SYR IV SCH
[2021-08-30] MEDS ORDERED: ceFAZolin 2000MG 2,000 MG/15 ML SYR IV SCH (06:00)
[2021-08-30] MEDS ORDERED: LACTATED RINGER'S 1,000 ML IV SCH ×2 (06:00→10:30)
[2021-08-30] MEDS ORDERED: LR 15ML/HR IV SCH (06:00)
[2021-08-30 06:18] LABS: Basophils # (auto) 0.03 K/uL (0-0.2); Basophils % (auto) 0.4 %; Eosinophils # (auto) 0.21 K/uL (0-0.5); Hematocrit (blood only) 37.3 % (37-47); Hemoglobin 12.7 g/dL (12.0-16.0); Lymphocytes # (auto) 1.71 K/uL (1.2-3.4); Lymphocytes % (auto) 24.6 %; Mean Corpuscular Hemoglobin 28.7 pg (25-34); Mean Corpuscular Volume 84.4 fL (80-100); Mean Platelet Volume 9.4 fL (7.4-10.4); Monocytes % (auto) 7.2 %; Neutrophils # (auto) 4.51 K/uL (1.4-6.5); Neutrophils % (auto) 64.8 %; Platelet Count 275 K/uL (130-400); RDW Coefficient of Variation 14.4 % (11.5-14.5); RDW Standard Deviation 44.8 fL (36.4-46.3); Red Blood Count 4.42 M/uL (4.2-5.4); White Blood Count 6.96 K/uL (4.8-10.8)
[2021-08-30] MEDS ORDERED: SCOPOLAMINE 1 MG TDSY TD ONE ×2 (06:54→06:55)
[2021-08-30] MEDS ORDERED: ATROPINE SULFATE 0.1 MG/ML 10ML SYR IV PRN (06:55)
[2021-08-30] MEDS ORDERED: KETOROLAC 30 MG/ML VIAL IV PRN (06:55)
[2021-08-30] MEDS ORDERED: fentaNYL citrate 100 MCG/2 ML VIAL IV PRN (06:55)
[2021-08-30] MEDS ORDERED: PROMETHAZINE HCL 6.25 MG in SODIUM CHLORIDE 0.9% 50 ML IV PRN (06:55)
[2021-08-30] MEDS ORDERED: ONDANSETRON INJ 2 MG/ML 2 ML VIAL IV PRN ×2 (06:55→10:17)
[2021-08-30] MEDS ORDERED: MIDAZOLAM HCL 1 MG/ML 2ML VIAL ONE (06:57)
[2021-08-30] MEDS ORDERED: fentaNYL citrate 100 MCG/2 ML VIAL ONE ×2 (06:57→07:43)
[2021-08-30] MEDS ORDERED: ACETAMINOPHEN 1000 MG/100 ML IV IV ONE (06:59)
--- NOTE | 2021-08-30 07:13 | History & Physical Bridge Note ---
Date of Service August 30, 2021 History & Physical Bridge Note I have examined the patient, reviewed the History & Physical and in the interval since the performance of the History & Physical I have noted the following changes of clinical significance: no changes noted
[2021-08-30] MEDS ORDERED: BUPIVACAINE 0.5 % 5 MG/1 ML MPF 30ML VIAL ONE (07:18)
[2021-08-30] MEDS ORDERED: ROCURONIUM BROMIDE 10 MG/ML 5 ML VIAL IV ONE (07:55)
[2021-08-30] MEDS ORDERED: ONDANSETRON INJ 2 MG/ML 2 ML VIAL ONE (07:55)
[2021-08-30] MEDS ORDERED: DEXAMETHASONE SOD INJ 4 MG/ML VIAL ONE (07:55)
[2021-08-30] MEDS ORDERED: PROPOFOL IV EMULSION 10 MG/ML 20 ML VIAL IV ONE (07:55)
[2021-08-30] MEDS ORDERED: LIDOCAINE 2% 2 ML VIAL/AMP(20MG/ML) INFIL ONE (07:55)
[2021-08-30] MEDS ORDERED: LARYING-O-JET KIT (LTA) ONE (07:55)
[2021-08-30] MEDS ORDERED: GLYCOPYRROLATE 0.2 MG/ML VIAL ONE (07:56)
[2021-08-30] MEDS ORDERED: NEOSTIGMINE METHYLSULFATE 1 MG/ML 10ML VIAL ONE (07:56)
[2021-08-30] MEDS ORDERED: HYDROmorphone INJ 2 MG/ML SYR/VIAL ONE (08:25)
[2021-08-30] MEDS ORDERED: TISSEEL FIBRIN SEALANT 10ML TOP ONE (08:58)
[2021-08-30] MEDS ORDERED: MEPERIDINE HCL 25 MG/ML CARP/VIAL ONE (10:16)
[2021-08-30] MEDS ORDERED: oxyCODONE/ACETAMINOPHEN 5mg/325mg TAB PO PRN (10:17)
[2021-08-30] MEDS ORDERED: MAGNESIUM HYDROXIDE SUSP 30 ML UDC PO PRN (10:17)
[2021-08-30] MEDS ORDERED: MEPERIDINE HCL 25 MG/ML CARP/VIAL IV PRN (10:17)
[2021-08-30] MEDS ORDERED: PROMETHAZINE HCL 12.5 MG in SODIUM CHLORIDE 0.9% 50 ML IV PRN (10:17)
[2021-08-30] MEDS ORDERED: SIMETHICONE 80 MG CHEW PO PRN (10:17)
--- NOTE | 2021-08-30 10:17 | Post Operative Brief Note ---
Immediate Post Op Note v1 Date of Surgery August 30, 2021 Pre & Post Diagnosis Operation Date: 06/07/21 07:00 <No data on this case meets the specified criteria> Operation Date: 08/30/21 07:00 Pre-Op Diagnosis: Hemorrhagia Post-Op Diagnosis: Hemorrhagia I identified the patient and participated in the time-out.: Yes Procedure Operation Date: 06/07/21 07:00 <No data on this case meets the specified criteria> Operation Date: 08/30/21 07:00 Actual Procedures p Total Laparoscopic Hysterectomy, Bilateral Salpingectomy, Cystoscopy, Removal of Intrauterine Device(Bilateral) - Romulo Porter MD Surgeon Romulo Porter MD Center Punch Operator ivette gould Estimated Blood Loss 10 Findings Consistent with Post-Op Diagnosis Drains Maharaj Catheter
[2021-08-30] MEDS ORDERED: MONTELUKAST SODIUM 10 MG TABLET PO ONE (12:49)
[2021-08-30] MEDS: oxyCODONE/ACETAMINOPHEN 5mg/325mg TAB PO PRN ×2 (13:09→18:08)
[2021-08-30] MEDS: IBUPROFEN 600 MG TAB PO PRN ×3 (13:10→23:47)
[2021-08-30] MEDS: DULoxetine HCL 20 MG CAP PO SCH (13:30)
--- NOTE | 2021-08-30 13:35 | Anesthesiology Progress Note ---
Date of Service August 30, 2021 Anesthesia Post Procedure Vital Signs Vital Signs: Temp Pulse Pulse Pulse Resp BP BP 08/30/21 11:00 36.9 C 109 H 16 140/92 08/30/21 10:50 100 H 14 110/82 08/30/21 10:35 97 H 14 139/83 08/30/21 10:25 36.7 C 98 H 14 138/84 08/30/21 10:15 108 H 14 102/80 08/30/21 10:09 36.8 C 110 H 14 155/84 H 08/30/21 05:44 36.5 C 108 H 18 117/87 Pulse Ox 08/30/21 11:00 99 08/30/21 10:50 97 08/30/21 10:35 97 08/30/21 10:25 98 08/30/21 10:15 100 08/30/21 10:09 100 08/30/21 05:44 99 Pain Intensity Lower Abdomen: Pain Intensity: 2 Transfer of Care Handoff Completed per policy Notes Mental Status: alert / awake / arousable Patient Amnestic to Procedure: Yes Nausea / Vomiting: adequately controlled Pain: adequately controlled Airway Patency, RR, SpO2: stable & adequate BP & HR: stable & adequate Hydration State: stable & adequate Anesthetic Complications: no major complications apparent
[2021-08-30] MEDS: CHECK SCOPOLAMINE PATCH PLACEMENT SCH ×2 (16:04→23:45)
--- NOTE | 2021-08-30 16:28 | Operative Report (OR) ---
DATE OF PROCEDURE: 08/30/2019. INDICATION FOR SURGERY: This is a 35-year-old with menorrhagia, failed medical therapy and IUD. PREOPERATIVE DIAGNOSIS: Menorrhagia, failed medical therapy. POSTOPERATIVE DIAGNOSIS: Menorrhagia, failed medical therapy. PROCEDURE: 1. Exam under anesthesia. 2. IUD removal. 3. Total laparoscopic hysterectomy with bilateral salpingectomy. 4. Cystoscopy. SURGEON: Romulo Porter MD. STAFF THERAPIST: SANJEEV Hernandez. ATTESTATION FOR STAFF THERAPIST: Farmer General was necessary to help with retraction and manipulation to help to provide better visualization for safe surgery. ANESTHESIA: General. DRAINS: None. ESTIMATED BLOOD LOSS: 10 mL. INTRAVENOUS FLUIDS: 1100 mL. URINE OUTPUT: 50 mL of clear urine at the end of the procedure. SPECIMEN: Uterus and cervix as well as left and right fallopian tubes. INTRAOPERATIVE COMPLICATIONS: None. PATIENT CONDITION: Stable. DISPOSITION: Postanesthesia care unit. ATTESTATION: I performed the entire procedure. DESCRIPTION OF PROCEDURE: The patient was taken to the operating room where she was prepped and drap ed in normal sterile fashion. Timeout was called. Maharaj catheter was placed into the bladder withou t difficulty. A weighted speculum was placed in the vagina. Puri retractor was used to retract the anterior part of the vagina. Large size medium VCare was placed into the uterine cavity and around t he cervix. This was to help with manipulation of the uterus during laparoscopy. Attention was paid to the abdominal part of the procedure where a supraumbilical incision was made wi th a scalpel, carried down to the fascia. Fascia was grabbed in the midline. The Veress needle was introduced into the abdomen at a 45-degree angle while tenting up the abdomen. Intraabdominal placem ent was confirmed with a water-filled syringe, a suction and drop test was performed. Abdomen was in sufflated with 4 L of CO2 gas. The Veress needle was removed and a 5 mm trocar with laparoscope was introduced into the abdomen. This was done under direct visualization. Three more accessory ports w ere placed, two on the left contralateral side and third on the right. One of the ports on the left was a 10 mm trocar. Inspection of the abdomen showed about 8-week size uterus, normal tubes and ovary on both sides. Bot h ureters were identified. The bowel was identified and abdomen appeared otherwise grossly normal. The LigaSure was passed through the left accessory port. Left fallopian tube was identified and grab bed 4 cm from the cornua of the uterus with the LigaSure and transected. This was followed by openin g of the anterior leaf of the broad ligament. This allowed for fenestration of the posterior left br oad ligament. The mid-section of the left fallopian tube, utero-ovarian and medial ovarian pedicles were all transected as well. Same procedure was performed on the contralateral side. Anterior leaf of the broad ligament was dissected to the mid-section of the vesicouterine peritoneum over the bladd er using the Harmonic scalpel. Same procedure was carried on the contralateral side. The posterior broad ligament peritoneum was carefully dissected also from both sides over the uterosacral arch in o rder to display the ureters laterally. Using traction and countertraction, the [place] retractor an d irrigation probe was used to further dissect the bladder off the lower segment of the uterus. Blad mari pillars and pubovesical fascia was dissected as well. Harmonic scalpel was used to obtain hemost asis when needed. Uterine manipulator was now palpable over the vaginal tissue. The right uterine pedicles were skelet onized and coagulated with the LigaSure. Good hemostasis was obtained. Same procedure was performed on the contralateral side. The cardinal ligaments were transected on both sides. Once again, hemos tasis was obtained, colpotomy was performed using the LigaSure hook from both sides. Uterus was masood miles through the vagina while still attached to the uterine manipulator. The gauze was placed into th e vagina to maintain pneumoperitoneum. With a grasper, the remaining section of the fallopian tubes were removed. They were positioned anteromedially and removed with Harmonic scalpel. Both ovaries p reserved. EndoStitch closure device was passed through the 10 mm port on the left and using the [place] graspe r for traction, the colpotomy closure was performed. Uterosacral ligaments were incorporated into th e closure in order to decrease the risk of prolapse. Lapra-Tys were used with the EndoStitch closure s. Attention was paid to the cystoscopy part of the procedure where a cystoscope was passed through the bladder after the Maharaj catheter was removed. Examination of the bladder showed normal grossly looki ng bladder with a bubble confirming a closed loop. There were no sutures in the bladder. No masses or lesions seen in the bladder. Both the ureter orifices were seen and urine was seen injecting out of both orifices without difficulty. The cystoscope was removed. Attention was paid back to the abd ominal part of the procedure where the incisions were closed. The 5 mm incisions were closed with De rmabond skin closure. The 10 mm incision was closed in 2 steps and the fascia was grabbed in figure- of-eight using Vicryl stitch was used to close the fascia. The skin was closed with 4-0 Monocryl. All instruments were removed from the abdomen and the vagina and the bladder accounted for x2 includi ng sponges, needles, and retractors. The patient was sent to recovery in stable condition. Job ID: [id number]
[2021-08-30] MEDS ORDERED: ALBUTEROL HFA 8 GM INHALER INH PRN (17:07)
[2021-08-30] MEDS: DOCUSATE SODIUM 100 MG CAP PO SCH (20:33)
[2021-08-30] MEDS ORDERED: ZOLPIDEM TARTRATE 5 MG TAB PO PRN (21:00)
[2021-08-31] MEDS: IBUPROFEN 600 MG TAB PO PRN ×2 (06:00→10:34)
[2021-08-31] MEDS: oxyCODONE/ACETAMINOPHEN 5mg/325mg TAB PO PRN ×2 (06:01→10:35)
[2021-08-31 06:28] LABS: Basophils # (auto) 0.02 K/uL (0-0.2); Basophils % (auto) 0.2 %; Eosinophils # (auto) 0.08 K/uL (0-0.5); Eosinophils % (auto) 0.8 %; Hematocrit (blood only) 32.8 % (37-47); Hemoglobin 10.8 g/dL (12.0-16.0); Immature Granulocytes # (auto) 0.02 K/uL (0.00-0.02); Immature Granulocytes % (auto) 0.2 %; Lymphocytes # (auto) 2.35 K/uL (1.2-3.4); Lymphocytes % (auto) 24.5 %; Mean Corpuscular Hemoglobin 28.6 pg (25-34); Mean Corpuscular Hgb Conc 32.9 g/dL (32-36); Mean Corpuscular Volume 86.8 fL (80-100); Mean Platelet Volume 9.8 fL (7.4-10.4); Monocytes # (auto) 0.85 K/uL (0.11-0.59); Monocytes % (auto) 8.9 %; Neutrophils # (auto) 6.28 K/uL (1.4-6.5); Neutrophils % (auto) 65.4 %; Platelet Count 236 K/uL (130-400); RDW Coefficient of Variation 14.8 % (11.5-14.5); RDW Standard Deviation 46.7 fL (36.4-46.3); Red Blood Count 3.78 M/uL (4.2-5.4)
[2021-08-31 06:51] LABS: BUN Creatinine Ratio 15.4 (10-20); Calcium 7.7 mg/dl (8.5-10.1); Creatinine Clr Calc Pharmacy 138.9 ml/min; Est GFR (African American) 132.4 ml/min; Est GFR (Non-African American) 114.2 ml/min; Potassium 3.9 mmol/L (3.5-5.1)
[2021-08-31] MEDS: CHECK SCOPOLAMINE PATCH PLACEMENT SCH (08:05)
[2021-08-31] MEDS: DOCUSATE SODIUM 100 MG CAP PO SCH (08:05)
[2021-08-31] MEDS: DULoxetine HCL 20 MG CAP PO SCH (08:06)
--- NOTE | 2021-08-31 10:01 | Obstetrical Progress Note ---
Date of Service August 31, 2021 Assessment & Plan (1) Menorrhagia: POD #1 TLH pt doing well no complaints d/c home with instrcutions Subjective Review of Systems All systems reviewed & are unremarkable except as noted in HPI & below Physical Exam Constitutional WD/WN, vitals as above Eyes PERRL, conjunctivae normal, anicteric sclerae ENMT external ear and nose normal, oropharynx normal Neck trachea midline, no thyromegaly Respiratory normal respiratory effort, lungs clear to auscultation Cardiovascular RRR, no murmur, no edema Chest (Breasts) normal inspection/palpation of breasts Gastrointestinal (Abdomen) normal bowel sounds, soft, nontender, no hepatosplenomegaly Musculoskeletal no cyanosis or clubbing, extremities motor strength 5/5 Skin + incision (Incision clean,dry and intact) Neurologic patellar DTR's 2+ bilat, sensation intact Psychiatric A+Ox3, euthymic affect Genitourinary no vaginal lesions, no adnexal mass Lymphatic no cervical or axillary lymphadenopathy Results & Data ([facility]) Vital Signs (Past 12 Hours) Vital Signs Temp Pulse Resp BP BP Pulse Ox 08/31/21 07:08 36.6 C 74 16 108/71 08/31/21 03:24 36.6 C 76 16 111/76 98 08/30/21 23:00 36.8 C 77 14 101/62 97
--- NOTE | 2021-08-31 23:03 | Discharge Summary (DS) ---
DATE OF ADMISSION: 08/30/2021. DATE OF DISCHARGE: 08/31/2021. DATE OF SURGERY: 08/30/2021. CHIEF COMPLAINT: Menorrhagia, failed medical therapy. HISTORY OF PRESENT ILLNESS: This is a 35-year-old status post menorrhagia, who has failed medical th erapy including oral contraceptive pills and IUD Mirena. The patient's ultrasound showed adenomyosis and the patient wished to have hysterectomy. The patient underwent total laparoscopic hysterectomy and IUD removal with cystoscopy on 08/30/2021. Surgery was otherwise unremarkable. Details of surge ry is in the surgical note. This morning, the patient has been discharged home in stable condition. PAST MEDICAL HISTORY: The patient has history of anxiety, asthma, depression, gastroesophageal reflu x disease and pulmonary embolism. PAST SURGICAL HISTORY: The patient has had colonoscopy and dental procedures done. SOCIAL HISTORY: The patient is a smoker. Denies alcohol and drug use. FAMILY HISTORY: Noncontributory. ALLERGIES: The patient has no known drug allergies. REVIEW OF SYSTEMS: Negative, except as dictated under HPI. PHYSICAL EXAMINATION: VITAL SIGNS: On 08/31/2021 as follows: Blood pressure 108/71, pulse of 74, respirations 16, tempera ture is 36.6. GENERAL: Well-developed, well-nourished white female in no acute distress. HEART: S1 and S2, regular rhythm and rate. LUNGS: Clear to auscultation bilaterally. ABDOMEN: Nontender, nondistended. Incision sites are clean, dry, and intact. EXTREMITIES: No cyanosis, clubbing or edema. LABORATORY DATA: Hemoglobin this morning is 10.8, hematocrit is 32.8. CONDITION ON DISCHARGE: Stable. OPERATIONS: Total laparoscopic hysterectomy with cystoscopy. DISCHARGE DIAGNOSIS: Postoperative after total laparoscopic hysterectomy with cystoscopy. PLAN ON DISCHARGE: The patient is discharged home with instructions regarding activity, diet, follow up appointment and medications. Job ID: [id number]
== END 2021-08-31 11:00 | disposition home or self-care (01) ==
LOC: 4S2 05:24 → ASU 05:24